=== PATIENT | male | born 1970 | race Caucasian/White ===

== ENCOUNTER 2017-07-30 08:01 | Emergency (ER) | payer BC, OTHER ==
[2017-07-30 08:19] VITALS: BP 119/84
--- NOTE | 2017-07-30 08:58 | ED Physician Documentation ---
PD HPI HEENT - Stated complaint Stated Complaint: THROAT PX/COUGH - Chief complaint Chief Complaint: Resp - History obtained from History obtained from: Patient - History of Present Illness Timing - duration: Weeks (3) Timing - details: Still present Location: Sinuses, Throat Associated symptoms: Congestion, Cough - Treatment prior to arrival Treatment prior to arrival: Motrin and Sudafed without relief. - Additional information Additional information: The patient is a 47-year-old male who presents with cough and sinus drainage of 3 weeks duration. He has been using [id number] cough medicine without relief. He presents now because of the sore throat that started yesterday and is worse today. He denies fever or shortness of breath. He denies abdominal pain, nausea or vomiting. He does report associated headache. Social history is significant for an for cigarette smoking. Review of Systems Constitutional: denies: Fever Eyes: denies: Discharge Ears: denies: Ear pain Nose: reports: Congestion, Sinus pressure / pain Throat: reports: Sore throat Cardiac: denies: Chest pain / pressure Respiratory: reports: Cough. denies: Dyspnea GI: denies: Abdominal Pain, Nausea, Vomiting : denies: Dysuria Skin: denies: Rash Musculoskeletal: denies: Back pain Neurologic: reports: Headache PD PAST MEDICAL HISTORY - Past Medical History Cardiovascular: None Respiratory: None Neuro: None Endocrine/Autoimmune: None Psych: Anxiety, Post traumatic stress disorder - Past Surgical History Past Surgical History: No - Present Medications Home Medications: Ambulatory Orders Medication Instructions Recorded Confirmed Amox/Clav 875/125 [Augmentin] 1 each PO Q12H #14 tablet 07/30/17 Oxymetazoline HCl [Afrin] 15 ml NS BID #1 spray 07/30/17 - Allergies Allergies/Adverse Reactions: Allergies Allergy/AdvReac Type Severity Reaction Status Date / Time No Known Drug Allergies Allergy Verified 05/03/16 07:47 - Social History Does the pt smoke?: Yes Smoking Status: Current every day smoker Does the pt drink ETOH?: Yes Does the pt have substance abuse?: No - Immunizations Immunizations are current?: Yes - POLST Patient has POLST: Yes PD ED PE NORMAL - Vitals Vital signs reviewed: Yes (normal) - General General: Alert and oriented X 3, Well developed/nourished - HEENT HEENT: Atraumatic, EOMI, Ears normal, Pharynx benign, Other (Tenderness to percussion over the maxillary sinuses bilaterally.) - Neck Neck: Supple, no meningeal sign, No adenopathy, No JVD - Cardiac Cardiac: RRR, No murmur - Respiratory Respiratory: No respiratory distress, Clear bilaterally - Abdomen Abdomen: Soft, Non tender - Back Back: No CVA TTP - Derm Derm: No rash - Extremities Extremities: No edema, No calf tenderness / cord - Neuro Neuro: Alert and oriented X 3, No motor deficit, Normal speech Results - Vitals Vitals: Oxygen O2 Source Room air PD MEDICAL DECISION MAKING - ED course Complexity details: considered differential, d/w patient ED course: The patient's presentation is most consistent with acute sinusitis. Given the duration of his symptoms antibiotic treatment is clinically indicated. Examination of his oropharynx does not suggest acute pharyngitis or peritonsillar abscess. It is likely his sore throat and cough are caused by drainage in his posterior oropharynx. He is being discharged with prescription for Augmentin and for Afrin nasal spray. I discussed with him the expected course of illness, antibiotic treatment and outpatient follow-up, as well as potentially worrisome signs or symptoms that should prompt reevaluation in the emergency department. Departure - Departure Disposition: 01 Home, Self Care Clinical Impression: Sinusitis Qualifiers: Sinusitis location: maxillary Chronicity: subacute Qualified Code(s): J01.00 - Acute maxillary sinusitis, unspecified Condition: Stable Instructions: ED Sinusitis Abx Tx Follow-Up: Josephine Robertson ARNP [Primary Care Provider] - Prescriptions: Amox/Clav 875/125 [Augmentin] 1 each PO Q12H #14 tablet Oxymetazoline HCl [Afrin] 15 ml NS BID #1 spray Comments: Stop smoking cigarettes. Take Augmentin twice daily as prescribed. Eat probiotic yogurt while on antibiotic therapy. You can use Afrin nasal spray as prescribed if needed for nasal congestion. You can use Tylenol or ibuprofen for fever or discomfort. Follow up with your primary physician within 2 weeks. Call to schedule an appointment. Return to the emergency department if you develop increasing difficulty breathing, or otherwise worsening symptoms. Discharge Date/Time: 07/30/17 09:07
== END 2017-07-30 09:07 | disposition home or self-care (01) ==
LOC: ED 08:01
DX: J01.00 Acute maxillary sinusitis, unspecified (principal); F17.200 Nicotine dependence, unspecified, uncomplicated
CPT/HCPCS: 99283

== ENCOUNTER 2017-10-20 09:32 | Outpatient (CLI) | payer BC, OTHER ==
--- NOTE | 2017-10-20 12:07 | XRAY Report ---
DATE OF SERVICE: 10/20/2017 TWO VIEW CHEST: 10/20/2017 CLINICAL INDICATION: History of positive PPD. COMPARISON: 05/03/2016. FINDINGS: Frontal and lateral views of the chest demonstrate a normal cardiac silhouette. The lungs are clear. No effusion or pneumothorax is present. IMPRESSION: NORMAL CHEST, UNCHANGED. NO EVIDENCE OF ACTIVE TUBERCULOSIS. TD: 10/20/2017 13:05
== END 2017-10-20 09:33 | disposition home or self-care (01) ==
LOC: DI 09:32
PROVIDERS: ATTEND Nurse Practitioner Family
DX: Z11.1 Encounter for screening for respiratory tuberculosis (principal)
CPT/HCPCS: 71046

== ENCOUNTER 2019-01-22 11:13 | Emergency (ER) | payer BC, OTHER ==
[2019-01-22 11:39] VITALS: BP 134/84
--- NOTE | 2019-01-22 13:30 | ED Physician Documentation ---
PD HPI HEENT FB - Chief complaint Chief Complaint: Heent - History obtained from History obtained from: Patient - History of Present Illness Timing - onset: Other (For the last month or so he has had a mass that he thinks is about the size of a golf ball over the superior anterior right jaw that is painful especially with swallowing. The pain keeps him up at night and is quite annoying. Pain is not severe however. He does feel like it is slowly getting worse. He is used chewing tobacco for a long time. He denies weight loss or sweats.) Review of Systems Ten Systems: 10 systems reviewed and negative Constitutional: reports: Fatigue. denies: Fever, Chills, Myalgias Ears: denies: Drainage/discharge Nose: denies: Rhinorrhea / runny nose, Congestion PD PAST MEDICAL HISTORY - Past Medical History Cardiovascular: None Respiratory: None Endocrine/Autoimmune: None Psych: Anxiety, Post traumatic stress disorder - Past Surgical History Past Surgical History: No - Present Medications Home Medications: Ambulatory Orders Medication Instructions Recorded Confirmed Amox/Clav 875/125 [Augmentin] 1 each PO Q12H #14 tablet 07/30/17 Oxymetazoline HCl [Afrin] 15 ml NS BID #1 spray 07/30/17 Amox/Clav 875/125 [Augmentin] 1 each PO Q12H #20 tablet 01/22/19 - Allergies Allergies/Adverse Reactions: Allergies Allergy/AdvReac Type Severity Reaction Status Date / Time No Known Drug Allergies Allergy Verified 01/22/19 11:39 - Social History Does the pt smoke?: Yes Smoking Status: Current every day smoker Does the pt drink ETOH?: Yes Does the pt have substance abuse?: No - Family History Family history: reports: Non contributory - Immunizations Immunizations are current?: Yes - POLST Patient has POLST: Yes PD ED PE NORMAL - Vitals Vital signs reviewed: Yes - General General: Alert and oriented X 3, No acute distress - HEENT HEENT: Other (There is slight right facial swelling and the suggestion of a mass in the tissue near the last superior molar without trismus, asymmetry of the oropharynx or lingual deviation. Palpated portions of the neck are normal.) - Neck Neck: Supple, no meningeal sign, No bony TTP - Neuro Neuro: Alert and oriented X 3, Normal speech - Psych Psych: Normal mood, Normal affect Results - Vitals Vitals: Vital Signs - 24 hr 01/22/19 11:37 Temperature 36.7 C Heart Rate 95 Respiratory 16 Rate Blood Pressure 134/84 H O2 Saturation 100 Oxygen O2 Source Room air - Labs Labs: Laboratory Tests 01/22/19 01/22/19 13:35 13:35 WBC 7.3 RBC 4.59 L Hgb 15.9 Hct 45.0 MCV 98.1 H MCH 34.7 H MCHC 35.3 RDW 12.3 Plt Count 262 MPV 8.2 Neut # (Auto) 4.2 Lymph # (Auto) 2.0 [place] # (Auto) 0.6 Eos # (Auto) 0.4 Baso # (Auto) 0.0 Absolute Nucleated RBC 0.01 Nucleated RBC % 0.1 Sodium 136 Potassium 3.7 Chloride 98 L Carbon Dioxide 30 Anion Gap 8.0 BUN 17 Creatinine 0.8 Estimated GFR (MDRD) 102 Glucose 102 H Calcium 9.1 Total Bilirubin 0.8 AST 35 ALT 46 Alkaline Phosphatase 60 Total Protein 7.6 Albumin 4.1 Globulin 3.5 Albumin/Globulin Ratio 1.2 Lipase 55 H - Rads (name of study) CT Face with contrast Radiology: EMP read contemporaneously (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 This was present on a CT from 6 years ago.) PD MEDICAL DECISION MAKING - ED course ED course: This is a 48-year-old gentleman with long-standing history of chewing tobacco use who presents with pain from a facial mass that is been bothering him for about a month. Cancer was at the top of the differential but parotitis and sialolith were also a possibility. CT as shown. I discussed the results with him. He does not recall when he was here for in January 2013 and those records are no longer available the has not significantly changed over 6 years is reassuring against malignancy. He was given a copy of his CAT scan and his sees an ENT who he will follow up with. Departure - Departure Disposition: 01 Home, Self Care Clinical Impression: Parotid gland enlargement Condition: Good Record reviewed to determine appropriate education?: Yes Prescriptions: Amox/Clav 875/125 [Augmentin] 1 each PO Q12H #20 tablet Comments: As discussed, you have an abnormal parotid gland on CT. It is reassuring though that the findings have not significantly changed in the last 6 years suggesting against a malignant process. I think is reasonable to trial some antibiotics, follow-up with your 's ear nose and throat surgeon within the next week or 2 with copy of the CAT scan on CD with you. Return for new or worsening symptoms.
[2019-01-22] MEDS ORDERED: IOVERSOL 320 100 ML VIAL IVP ONE ×2 (13:38→14:46)
[2019-01-22 13:47] LABS: BASOPHILS % (AUTO) 0.6 %; EOSINOPHILS # (AUTO) 0.4 10^3/uL (0.0-0.7); EOSINOPHILS % (AUTO) 5.8 %; HGB - HEMOGLOBIN 15.9 g/dL (14.0-18.0); LYMPHOCYTES % (AUTO) 27.2 %; MEAN CORPUSCULAR HEMOGLOBIN 34.7 pg (27.0-31.0); MEAN CORPUSCULAR HGB CONC 35.3 g/dL (32.0-36.0); MEAN CORPUSCULAR VOLUME 98.1 fL (80.0-94.0); MEAN PLATELET VOLUME 8.2 fL (7.4-11.4); MONOCYTES # (AUTO) 0.6 10^3/uL (0.0-1.0); MONOCYTES % (AUTO) 8.7 %; NEUTROPHILS # (AUTO) 4.2 10^3/uL (1.5-6.6); NEUTROPHILS % (AUTO) 57.7 %; PLT - PLATELET COUNT 262 10^3/uL (130-450); RED BLOOD COUNT 4.59 10^6/uL (4.70-6.10); RED CELL DISTRIBUTION WIDTH 12.3 % (12.0-15.0); WHITE BLOOD COUNT 7.3 x10^3/uL (4.8-10.8)
[2019-01-22 14:12] LABS: ALBUMIN 4.1 g/dL (3.2-5.5); ALBUMIN/GLOBULIN RATIO 1.2 (1.0-2.2); BILIRUBIN,TOTAL 0.8 mg/dL (0.2-1.0); CALCIUM 9.1 mg/dL (8.5-10.3); CREATININE 0.8 mg/dL (0.6-1.2); TOTAL PROTEIN 7.6 g/dL (6.7-8.2)
--- NOTE | 2019-01-22 14:59 | CT Report ---
Reason: R facial mass, IV contrast, go from zygoma->hyoid Procedure Date: 01/22/2019 Accession Number: [id number] / [id number] Procedure: CT - MAXILLOFACIAL W CPT Code: FULL RESULT: EXAM: CT MAXILLOFACIAL WITH CONTRAST EXAM DATE: 01/22/2019 02:34 PM. CLINICAL HISTORY: 48-year-old with right facial mass. Evaluate for facial pathology. COMPARISONS: CT neck 01/17/2013. TECHNIQUE: Thin-section axial images were acquired of the face after administration of intravenous contrast. Post-processing: Coronal and sagittal reformats. Other: None. IV contrast: [id number]. In accordance with CT protocol optimization, one or more of the following dose reduction techniques were utilized for this exam: automated exposure control, adjustment of mA and/or KV based on patient size, or use of iterative reconstructive technique. FINDINGS: Soft Tissue: No abnormal inflammation or fluid collection. No soft tissue mass. The infratemporal fossa appears normal. There are punctate calcifications seen within the tonsillar crypts. The mucosa of the nasopharynx and oropharynx appear symmetric with no discrete mass or masslike enhancement seen. Parapharyngeal soft tissues of the pharynx appear clear. Orbits: Symmetric and unremarkable. Bones: No fracture or bone lesion. Temporomandibular Joints: Mild bilateral TMJ arthropathy, greater on the right. Sinuses: Small left maxillary mucosal retention cyst versus polyps with mild mucosal thickening left maxillary sinus. Mastoid air cells and middle ear cavities appear clear. Glands: Again demonstrated is a right parotid tail with accessory parotid gland extending over the right masseter muscle (series 4, image 84) similar to CT neck 01/17/2013. Otherwise the glands appear normal. Other: None. IMPRESSION: 1. Again demonstrated is a right parotid tail with accessory parotid gland extending over the right masseter muscle similar to CT neck 01/17/2013. As no CT marker was placed it is unclear if this represents the right facial mass. 2. Otherwise no definite mass, inflammatory process, fluid collection, or abnormal postcontrast enhancement seen within the face. RADIA
== END 2019-01-22 16:13 | disposition home or self-care (01) ==
LOC: ED 11:13
DX: R59.0 Localized enlarged lymph nodes (principal); F17.200 Nicotine dependence, unspecified, uncomplicated
CPT/HCPCS: 36415; 70487; 80053; 83690; 85025; 99283; Q9967

== ENCOUNTER 2020-07-08 11:24 | Outpatient (CLI) | payer BC, OTHER | END 2020-07-08 11:25 | disposition home or self-care (01) | LOC: COV 11:24 | PROVIDERS: ATTEND Family Medicine | DX: R05 Cough (principal); R09.81 Nasal congestion; R11.2 Nausea with vomiting, unspecified; Z20.828 Contact with and (suspected) exposure to other viral communicable diseases ==

== ENCOUNTER 2021-06-16 03:46 | Emergency (ER) | payer BC, OTHER ==
[2021-06-16] MEDS ORDERED: MIDAZOLAM 10 MG/5 ML UDC PO STA (05:16)
[2021-06-16] MEDS ORDERED: oxyCODONE 5 MG TABLET PO STA (05:17)
--- NOTE | 2021-06-16 05:46 | ED Physician Documentation ---
PD HPI OPHTHO - Stated complaint Stated Complaint: L EYE PX - Chief complaint Chief Complaint: Heent - History obtained from History obtained from: Patient - Additional information Additional information: 51-year-old man presents with left eye pain after splashing hot oil on it while cooking dinner for his this evening. He irrigated it for an hour with water and then went to bed and slept but then woke up with severe pain. Also endorses some mild pain in the right eye. Review of Systems Eyes: reports: Irritation PD PAST MEDICAL HISTORY - Past Medical History Past Medical History: No Cardiovascular: None Respiratory: Other Neuro: None Endocrine/Autoimmune: None GI: None : None HEENT: None Psych: Anxiety, Post traumatic stress disorder Musculoskeletal: None Derm: None - Past Surgical History Past Surgical History: No - Present Medications Home Medications: Ambulatory Orders Medication Instructions Recorded Confirmed Amox/Clav 875/125 [Augmentin] 1 each PO Q12H #14 tablet 07/30/17 Oxymetazoline HCl [Afrin] 15 ml NS BID #1 spray 07/30/17 Amox/Clav 875/125 [Augmentin] 1 each PO Q12H #20 tablet 01/22/19 Chlorhexidine Gluconate [Peridex] 15 ml MM BID #118 ml 05/06/19 Hydrocodone/Acetaminophen 1 - 2 each PO Q6HR PRN #20 tablet 05/06/19 [Hydrocodone-Acetamin 5-325 mg] cephALEXin [Keflex] 500 mg PO Q6H #28 capsule 05/06/19 Mineral Oil/Petrolatum,White 3.5 gm OP QPM #1 bottle 06/16/21 [Lubricant Pm Eye Ointment] - Allergies Allergies/Adverse Reactions: Allergies Allergy/AdvReac Type Severity Reaction Status Date / Time No Known Drug Allergies Allergy Verified 06/16/21 03:54 - Social History Does the pt smoke?: Yes Smoking Status: Current every day smoker Does the pt drink ETOH?: Yes Does the pt have substance abuse?: No - Immunizations Immunizations are current?: Yes - POLST Patient has POLST: Yes PD ED PE NORMAL - Vitals Vital signs reviewed: Yes - General General: Alert and oriented X 3, No acute distress, Well developed/nourished - HEENT HEENT: Atraumatic, PERRL, EOMI, Other (patient initially unable to open eye, resolving after instillation of lidocaine drops. fluorescein stain with 1mm area of increased uptake to L eye at center of cornea. R eye with mild increased uptake to medial cornea. no foreign body on eversion of lids) - Derm Derm: Normal color, Warm and dry - Neuro Neuro: Alert and oriented X 3 - Psych Psych: Other (anxious mood and affect) Results - Vitals Vitals: Vital Signs - 24 hr 06/16/21 03:49 Temperature 36.2 C L Heart Rate 81 Respiratory 18 Rate Blood Pressure 134/79 H O2 Saturation 100 Oxygen O2 Source Room air PD MEDICAL DECISION MAKING - ED course ED course: 51-year-old man presented with corneal injury after splashing hot oil on his eye. No visible injury on plain light inspection however fluorescein exam shows increased uptake BL eyes. antibiotic drops provided and ointment prescribed. patient will f/u with ophthalmology . Departure - Departure Disposition: 01 Home, Self Care Clinical Impression: Corneal burn Condition: Good Instructions: Corneal Injury Prescriptions: Mineral Oil/Petrolatum,White [Lubricant Pm Eye Ointment] 3.5 gm OP QPM #1 bottle Comments: You were seen in the emergency department for an oil spot on the left eye. You also had a small area of irritation on the right and will need to use antibiotic eyedrops every 4 hours until you finish the bottle. Please also instill lubricating drops at nighttime and whenever you are resting with your eyes closed for a period of time. Return to the emergency department if you have new or worsening symptoms or other concerns. follow up with ophthalmology. [facility] (3) Cardiology Teacher [address], [place] Closed Opens 8 AM
[2021-06-16 05:57] VITALS: BP 132/72
[2021-06-16] MEDS ORDERED: OFLOXACIN 0.3% OPHTH DROPS EACHEYE SCH (06:00)
== END 2021-06-16 05:57 | disposition home or self-care (01) ==
LOC: ED 03:46
DX: T26.12XA Burn of cornea and conjunctival sac, left eye, initial encounter (principal); H57.11 Ocular pain, right eye; X10.2XXA Contact with fats and cooking oils, initial encounter; Y93.G3 Activity, cooking and baking; F17.200 Nicotine dependence, unspecified, uncomplicated
CPT/HCPCS: 99282; 99283; A9270

== ENCOUNTER 2021-10-21 08:00 | Outpatient (CLI) | payer BC, OTHER ==
--- NOTE | 2021-10-21 14:48 | XRAY Report ---
PROCEDURE: Abdomen 1 View X-Ray INDICATIONS: PATIENT FALL TECHNIQUE: 1 view of the abdomen were acquired. COMPARISON: None FINDINGS: Surgical changes and devices: None. Bowel: No pneumoperitoneum. The bowel gas pattern is normal. Soft tissues: No masses; visualized solid organ contours appear normal in size. No suspicious abdom inal calcifications. Bones: No suspicious bony abnormalities. IMPRESSION: No acute process. Reviewed by: Maribeth Sultana MD on 10/21/2021 2:47 PM PST Approved by: Maribeth Sultana MD on 10/21/2021 2:47 PM [facility] Station ID: [id number]
--- NOTE | 2021-10-21 18:44 | XRAY Report ---
PROCEDURE: Ribs w/PA Chest RT INDICATIONS: PATIENT FELL TECHNIQUE: 3 views of the right ribs were acquired, along with a single view chest. COMPARISON: None FINDINGS: Surgical changes and devices: None. Bones and chest wall: No fractures or dislocations. No suspicious bony lesions. Overlying soft tis sues appear unremarkable. Lungs and pleura: No pleural effusions or pneumothorax. Lungs appear clear. Mediastinum: Mediastinal contours appear normal. Heart size is normal. IMPRESSION: No evidence of acute right rib fracture. No evidence acute pulmonary process. Reviewed by: Kanu Bowman MD on 10/21/2021 6:43 PM PST Approved by: Kanu Bowman MD on 10/21/2021 6:43 PM PST Station ID: [id number]
== END 2021-10-21 23:59 ==
LOC: DI.N 08:00
PROVIDERS: ATTEND Nurse Practitioner
DX: R07.81 Pleurodynia (principal); R10.9 Unspecified abdominal pain

== ENCOUNTER 2022-01-24 13:49 | Emergency (ER) | payer BC, OTHER ==
[2022-01-24 13:54] VITALS: BP 145/90
--- NOTE | 2022-01-24 13:59 | ED Physician Documentation ---
History of Present Illness - Stated complaint Stated Complaint: MED REFILL - Chief complaint Chief Complaint: General - History obtained from History obtained from: Patient - Additonal information Additional information: 51-year-old gentleman who presents requesting refill of lorazepam for PTSD. His doctor was out of the office and was unable to get his refill as usual and now they cannot refill it over the weekend. He has no acute complaints. Review of Systems Constitutional: denies: Fever, Chills Musculoskeletal: reports: Reviewed and negative Neurologic: reports: Reviewed and negative Psychiatric: denies: Depressed, Suicidal, Hallucinations, Delusions PD PAST MEDICAL HISTORY - Past Medical History Cardiovascular: None Respiratory: Other Neuro: None Endocrine/Autoimmune: None GI: None : None HEENT: None Psych: Anxiety, Post traumatic stress disorder Musculoskeletal: None Derm: None - Past Surgical History Past Surgical History: No - Present Medications Home Medications: Ambulatory Orders Medication Instructions Recorded Confirmed Amox/Clav 875/125 [Augmentin] 1 each PO Q12H #14 tablet 07/30/17 Oxymetazoline HCl [Afrin] 15 ml NS BID #1 spray 07/30/17 Amox/Clav 875/125 [Augmentin] 1 each PO Q12H #20 tablet 01/22/19 Chlorhexidine Gluconate [Peridex] 15 ml MM BID #118 ml 05/06/19 Hydrocodone/Acetaminophen 1 - 2 each PO Q6HR PRN #20 tablet 05/06/19 [Hydrocodone-Acetamin 5-325 mg] cephALEXin [Keflex] 500 mg PO Q6H #28 capsule 05/06/19 Mineral Oil/Petrolatum,White 3.5 gm OP QPM #1 bottle 06/16/21 [Lubricant Pm Eye Ointment] LORazepam [Ativan] 1 mg PO BID #10 tablet 01/24/22 - Allergies Allergies/Adverse Reactions: Allergies Allergy/AdvReac Type Severity Reaction Status Date / Time No Known Drug Allergies Allergy Verified 01/24/22 13:52 - Social History Does the pt smoke?: Yes Smoking Status: Current every day smoker Does the pt drink ETOH?: Yes Does the pt have substance abuse?: No - Immunizations Immunizations are current?: Yes - POLST Patient has POLST: Yes PD ED PE NORMAL - Vitals Vital signs reviewed: Yes - General General: Alert and oriented X 3, No acute distress - Derm Derm: Normal color, Warm and dry - Neuro Neuro: Alert and oriented X 3, Normal speech - Psych Psych: Normal mood, Normal affect Results - Vitals Vitals: Vital Signs - 24 hr 01/24/22 13:52 Temperature 36.5 C Heart Rate 90 Respiratory 15 Rate Blood Pressure 145/90 H O2 Saturation 99 Oxygen O2 Source Room air PD MEDICAL DECISION MAKING - ED course ED course: 51-year-old presents for medication refill, will prescribe a limited amount unti l he can see his doctor. Of note the original prescription was sent to [facility] but then had to be canceled and sent to [facility] as [facility] is open but does not have a pharmacist today. Departure - Departure Disposition: 01 Home, Self Care Clinical Impression: PTSD (post-traumatic stress disorder) Condition: Good Record reviewed to determine appropriate education?: Yes Instructions: Lorazepam Prescriptions: LORazepam [Ativan] 1 mg PO BID #10 tablet Comments: I sent your prescription electronically to [facility] in [place]. As discussed, follow-up with your doctor for further refills. Do not drink or drive while taking lorazepam/Ativan. Discharge Date/Time: 01/24/22 14:07
== END 2022-01-24 14:07 | disposition home or self-care (01) ==
LOC: ED 13:49
DX: Z76.0 Encounter for issue of repeat prescription (principal); F43.10 Post-traumatic stress disorder, unspecified; F17.200 Nicotine dependence, unspecified, uncomplicated
CPT/HCPCS: 99282

== ENCOUNTER 2022-03-18 01:48 | Outpatient (CLI) | payer BC, OTHER | END 2022-03-18 01:49 | disposition critical access hospital (66) | LOC: EMS 01:48 | DX: R07.0 Pain in throat (principal); Y04.8XXA Assault by other bodily force, initial encounter | CPT/HCPCS: A0425; A0429 ==

== ENCOUNTER 2023-03-25 11:41 | Outpatient (CLI) | payer BC, OTHER ==
[2023-03-25 14:19] LABS: BASOPHILS # (AUTO) 0.1 10^3/uL (0.0-0.1); BASOPHILS % (AUTO) 0.8 %; EOSINOPHILS # (AUTO) 0.4 10^3/uL (0.0-0.7); EOSINOPHILS % (AUTO) 4.7 %; HCT - HEMATOCRIT 45.5 % (42.0-52.0); HGB - HEMOGLOBIN 15.8 g/dL (14.0-18.0); LYMPHOCYTES # (AUTO) 2.2 10^3/uL (1.5-3.5); LYMPHOCYTES % (AUTO) 29.4 %; MEAN CORPUSCULAR HGB CONC 34.7 g/dL (32.0-36.0); MEAN CORPUSCULAR VOLUME 97.8 fL (80.0-94.0); MEAN PLATELET VOLUME 10.5 fL (7.4-11.4); MONOCYTES # (AUTO) 0.7 10^3/uL (0.0-1.0); MONOCYTES % (AUTO) 9.2 %; NEUTROPHILS # (AUTO) 4.1 10^3/uL (1.5-6.6); NEUTROPHILS % (AUTO) 55.5 %; PLT - PLATELET COUNT 299 10^3/uL (130-450); RED BLOOD COUNT 4.65 10^6/uL (4.70-6.10); RED CELL DISTRIBUTION WIDTH 11.6 % (12.0-15.0); WHITE BLOOD COUNT 7.4 x10^3/uL (4.8-10.8)
[2023-03-25 15:00] LABS: CALCIUM 9.6 mg/dL (8.5-10.3); CREATININE 1.1 mg/dL (0.6-1.2); POTASSIUM 3.5 mmol/L (3.5-5.0); URIC ACID 7.4 mg/dL (2.6-7.2)
== END 2023-03-25 11:42 | disposition home or self-care (01) ==
LOC: LAB.S 11:41
PROVIDERS: ATTEND Emergency Medicine
DX: M10.9 Gout, unspecified (principal)
CPT/HCPCS: 36415; 80048; 84550; 85025

== ENCOUNTER 2023-05-27 13:44 | Outpatient (CLI) | payer BC, OTHER | END 2023-05-27 13:45 | disposition home or self-care (01) | LOC: LAB.S 13:44 | PROVIDERS: ATTEND Nurse Practitioner | DX: M1A.9XX0 Chronic gout, unspecified, without tophus (tophi) (principal) | CPT/HCPCS: 36415; 84550 ==

== ENCOUNTER 2023-10-29 08:00 | Outpatient (CLI) | payer BC, OTHER ==
--- NOTE | 2023-10-29 14:22 | XRAY Report ---
PROCEDURE: Chest 2V INDICATIONS: ACUTE LOWER RESPIRATORY INFECTION TECHNIQUE: 2 views of the chest were acquired. COMPARISON: Chest radiographs 10/20/2017 FINDINGS: Surgical changes and devices: None. Lungs and pleura: No pleural effusions or pneumothorax. Lungs are clear. Mediastinum: Mediastinal contours appear normal. Heart size is normal. Bones and chest wall: No suspicious bony lesions. Overlying soft tissues appear unremarkable. IMPRESSION: No acute cardiopulmonary process. Reviewed by: Edward Otto MD on 10/29/2023 2:21 PM PST Approved by: Edward Otto MD on 10/29/2023 2:21 PM PST Station ID: [id number]
== END 2023-10-29 23:59 | disposition home or self-care (01) ==
LOC: DI.S 08:00
PROVIDERS: ATTEND Emergency Medicine
DX: J22 Unspecified acute lower respiratory infection (principal)

== ENCOUNTER 2023-11-05 09:13 | Outpatient (CLI) | payer BC, OTHER | END 2023-11-05 09:14 | disposition critical access hospital (66) | LOC: EMS 09:13 | DX: R10.12 Left upper quadrant pain (principal); R07.81 Pleurodynia; R07.1 Chest pain on breathing; W17.89XA Other fall from one level to another, initial encounter; Y92.009 Unspecified place in unspecified non-institutional (private) residence as the place of occurrence of the external cause | CPT/HCPCS: A0425; A0427 ==

== ENCOUNTER 2023-11-05 09:46 | Emergency (ER) | payer BC, OTHER ==
[2023-11-05 10:25] LABS: BASOPHILS # (AUTO) 0.1 10^3/uL (0.0-0.1); BASOPHILS % (AUTO) 0.6 %; EOSINOPHILS # (AUTO) 0.1 10^3/uL (0.0-0.7); EOSINOPHILS % (AUTO) 1.5 %; HGB - HEMOGLOBIN 15.2 g/dL (14.0-18.0); LYMPHOCYTES # (AUTO) 1.3 10^3/uL (1.5-3.5); LYMPHOCYTES % (AUTO) 13.6 %; MEAN CORPUSCULAR HEMOGLOBIN 34.7 pg (27.0-31.0); MEAN CORPUSCULAR HGB CONC 34.5 g/dL (32.0-36.0); MEAN CORPUSCULAR VOLUME 100.5 fL (80.0-94.0); MEAN PLATELET VOLUME 10.2 fL (7.4-11.4); MONOCYTES # (AUTO) 0.7 10^3/uL (0.0-1.0); MONOCYTES % (AUTO) 7.8 %; NEUTROPHILS # (AUTO) 7.2 10^3/uL (1.5-6.6); PLT - PLATELET COUNT 242 10^3/uL (130-450); RED BLOOD COUNT 4.38 10^6/uL (4.70-6.10); RED CELL DISTRIBUTION WIDTH 11.9 % (12.0-15.0); WHITE BLOOD COUNT 9.5 x10^3/uL (4.8-10.8)
[2023-11-05 10:41] LABS: ALBUMIN/GLOBULIN RATIO 1.2 (1.0-2.2); BILIRUBIN,TOTAL 0.7 mg/dL (0.2-1.0); CALCIUM 8.9 mg/dL (8.5-10.3); CREATININE 0.9 mg/dL (0.6-1.3); POTASSIUM 4.7 mmol/L (3.5-4.5); TOTAL PROTEIN 7.3 g/dL (6.4-8.9)
[2023-11-05] MEDS ORDERED: SODIUM CHLORIDE 0.9% 1,000 ML IV STA (10:41)
[2023-11-05] MEDS ORDERED: ONDANSETRON 4 MG/2 ML VIAL IVP STA (10:41)
[2023-11-05] MEDS ORDERED: MORPHINE 2 MG/ML CARPUJECT IVP STA (10:41)
[2023-11-05] MEDS ORDERED: iohexoL-300 100 ML VIAL ONE (10:44)
--- NOTE | 2023-11-05 11:42 | CT Report ---
PROCEDURE: Chest W INDICATIONS: L sided rib and flank pain after trauma CONTRAST: 100ml omni 300 TECHNIQUE: After the administration of intravenous contrast, a CT scan of the chest was performed. Images were recorded and evaluated at appropriate window settings. Reformats: axial MIP of the chest, coronal and sagittal. For radiation dose reduction, the following was used: automated exposure control, adjustme nt of mA and/or kV according to patient size. COMPARISON: 10/29/2023 radiograph FINDINGS: Image quality: Diagnostic Lungs and pleura:Bibasilar atelectasis/scarring. Mild bronchial wall thickening. No dense airspace di sease. No pleural effusion/hemothorax. No pneumothorax. No solid mass/nodule requiring followup per current guidelines if patient is not high risk and has no primary malignancy. Fissural nodules and micronodules can be followed on an optional basis for high- risk patients (for example on the right). Mediastinum, heart, and esophagus: Normal heart size. No pathologic lymph nodes by size criteria. Chest wall and thyroid: Unremarkable Upper abdomen: Separately dictated Bones: Nondisplaced fracture of the left 11th rib. Possible additional nondisplaced fracture of the l eft 12th rib. IMPRESSION: Nondisplaced left lower rib fractures. No pneumothorax. Other findings as above. Reviewed by: Leopoldo Cardona MD on 11/05/2023 11:41 AM PST Approved by: Leopoldo Cardona MD on 11/05/2023 11:41 AM PST Station ID: [id number]
--- NOTE | 2023-11-05 11:47 | CT Report ---
PROCEDURE: Abdomen/Pelvis W INDICATIONS: L sided rib and flank pain after trauma CONTRAST: 100ml omni 300 TECHNIQUE: After the administration of intravenous contrast, a CT scan of the abdomen and pelvis was performed. Images were recorded and evaluated at appropriate window settings. Reformats: coronal and sagittal. F or radiation dose reduction, the following was used: automated exposure control, adjustment of mA and /or kV according to patient size. COMPARISON: 03/31/2014 FINDINGS: Image quality: Diagnostic Lower chest: Separately dictated Liver: Possible hemangioma of the liver dome versus perfusional anomaly, also seen in 2014 Gallbladder and biliary system: Unremarkable Pancreas: No ductal dilation Spleen: No capsular hematoma or discrete laceration Adrenals: No adrenal nodules Kidneys: No solid mass or hydronephrosis Vessels and lymph nodes: The main portal vein is patent. There is no abdominal aortic aneurysm or pat hologic lymph nodes by size criteria. Bowel and peritoneum: No evidence of small bowel obstruction. No drainable abscess or pathologic asci joleen. Body wall: Tiny fat-containing umbilical hernia. Pelvis: Bladder is unremarkable. The prostate is not well assessed on this study. There is heterogene ous enhancement, consider correlation with PSA. Small fat-containing inguinal hernias. Bones: No acute or suspicious osseous finding. Degenerative changes are present. Rib fractures are se parately dictated on chest CT. IMPRESSION: Left lower rib nondisplaced fractures are separately dictated. No acute intra-abdominal traumatic abn ormality identified. Other findings as above. Reviewed by: Leopoldo Cardona MD on 11/05/2023 11:46 AM PST Approved by: Leopoldo Cardona MD on 11/05/2023 11:46 AM PST Station ID: [id number]
[2023-11-05] MEDS ORDERED: iohexoL-300 100 ML VIAL IVP ONE (11:56)
--- NOTE | 2023-11-05 12:07 | ED Physician Documentation ---
PD HPI Fall - Stated complaint Stated Complaint: FALL - Chief complaint Chief Complaint: Trauma Ch/Bk - History obtained from History obtained from: Patient - Additional information Additional information: Patient is a 53-year-old male presenting for evaluation of left-sided flank pain since yesterday. Patient states he tripped and fell out of his trailer and landed on his stump hitting his left lower rib and flank. Patient denies hitting his head. He does not take blood thinners. He initially went to the walk-in clinic and was directed here by EMS. Patient reports pain with movements and ta ben a deep breath. Review of Systems Constitutional: denies: Fever Cardiac: denies: Chest pain / pressure Respiratory: denies: Dyspnea GI: denies: Abdominal Pain Musculoskeletal: reports: Back pain Neurologic: denies: Head injury PD PAST MEDICAL HISTORY - Past Medical History Past Medical History: Yes Cardiovascular: None Respiratory: Other Neuro: None Endocrine/Autoimmune: None GI: None : None HEENT: None Psych: Anxiety, Post traumatic stress disorder Musculoskeletal: None Derm: None - Past Surgical History Past Surgical History: No - Present Medications Home Medications: Ambulatory Orders Medication Instructions Recorded Confirmed Albuterol Sulfate [Proair 90 mcg IH QID 11/05/23 11/05/23 Digihaler] Azithromycin [Zithromax] 250 mg PO UD 11/05/23 11/05/23 Benzonatate [Tessalon] 100 mg PO TID 11/05/23 11/05/23 Doxycycline Hyclate [Vibramycin] 100 mg PO BID 11/05/23 11/05/23 Lidocaine Patch 5% [Lidoderm Patch] 1 patch TOP DAILY PRN #10 patch 11/05/23 Oxycodone HCl/Acetaminophen 1 each PO Q6H PRN #14 tablet 11/05/23 [Percocet 5-325 mg Tablet] Pantoprazole [Protonix] 40 mg PO DAILY 11/05/23 11/05/23 - Allergies Allergies/Adverse Reactions: Allergies Allergy/AdvReac Type Severity Reaction Status Date / Time No Known Drug Allergies Allergy Verified 11/05/23 10:04 - Social History Does the pt smoke?: Yes Smoking Status: Current every day smoker Does the pt drink ETOH?: Yes Does the pt have substance abuse?: No - Immunizations Immunizations are current?: Yes - POLST Patient has POLST: Yes PD ED PE NORMAL - General General: Alert and oriented X 3, No acute distress, Well developed/nourished - HEENT HEENT: Atraumatic, Moist mucous membranes, Pharynx benign - Neck Neck: Supple, no meningeal sign, No bony TTP, C-Spine cleared by NEXUS criteria - Cardiac Cardiac: RRR, Strong equal pulses - Respiratory Respiratory: No respiratory distress, Clear bilaterally - Abdomen Abdomen: Normal bowel sounds, Soft, Non tender, Non distended - Back Back: No spinal TTP, Other (Numbness towards the left lower flank, left lower ribs, no bruising, no ecchymosis, no flail segments) - Derm Derm: Warm and dry - Extremities Extremities: No deformity - Neuro Neuro: Alert and oriented X 3, No motor deficit, No sensory deficit, Normal speech Results - Vitals Vitals: Vital Signs - 24 hr 11/05/23 11/05/23 11/05/23 09:56 10:14 12:51 Temperature 36.8 C Heart Rate 78 73 79 Respiratory 17 16 20 Rate Blood Pressure 131/83 H 108/87 H 117/80 O2 Saturation 98 95 99 Oxygen O2 Source Room air - Labs Labs: Laboratory Tests 11/05/23 11/05/23 10:21 10:21 WBC 9.5 RBC 4.38 L Hgb 15.2 Hct 44.0 MCV 100.5 H MCH 34.7 H MCHC 34.5 RDW 11.9 L Plt Count 242 MPV 10.2 Neut # (Auto) 7.2 H Lymph # (Auto) 1.3 L Dubois # (Auto) 0.7 Eos # (Auto) 0.1 Baso # (Auto) 0.1 Absolute Nucleated RBC 0.00 Nucleated RBC % 0.0 Sodium 136 Potassium 4.7 H Chloride 101 Carbon Dioxide 25 Anion Gap 10.0 BUN 15 Creatinine 0.9 Estimated GFR (MDRD) 88 L Glucose 91 Calcium 8.9 Total Bilirubin 0.7 AST 37 ALT 30 Alkaline Phosphatase 79 Total Protein 7.3 Albumin 4.0 Globulin 3.3 Albumin/Globulin Ratio 1.2 Lipase 44 PD Medical Decision Making - ED course Complexity details: reviewed results, re-evaluated patient, d/w patient ED course: Patient is a 53-year-old male presenting for evaluation of left flank pain after fall Yesterday. Patient did not hit his head. No LOC. Labs including CBC and chemistries were obtained and reviewed. CT scan of the chest, abdomen pelvis were obtained and reviewed. He does have 2 rib fractures of the left 11 and 12. No intra-abdominal pathology. No pneumothorax. Pain was controlled with IV morphine. Patient advised on his rib fractures as well as treatment with pain medication and incentive spirometer. Patient advised on follow-up with primary care. He is counseled on concerning symptoms to return for. Departure - Departure Disposition: 01 Home, Self Care Clinical Impression: Left rib fracture Condition: Stable Instructions: ED Fx Rib Prescriptions: Lidocaine Patch 5% [Lidoderm Patch] 1 patch TOP DAILY PRN #10 patch PRN Reason: pain Oxycodone HCl/Acetaminophen [Percocet 5-325 mg Tablet] 1 each PO Q6H PRN #14 tablet PRN Reason: pain Comments: You have 2 rib fractures on the left side, 11th and 12th ribs. I am sending prescriptions for narcotic pain medication [facility] along with lidocaine patches. These will take several weeks to heal. I would recommend follow-up with your primary care doctor. We have also given you a device called an incentive spirometer that would recommend using several times a day to ensure that you are taking deep breaths and expanding your lungs. Return to the ER with any worsening symptoms such as fever, increased pain, difficulty breathing. I am prescribing a short course of narcotic pain medication for you. These are potentially dangerous and addictive medications that should be used carefully. These medications may constipate you. Take an baci-nes-omjrlyd stool softener (docusate) twice daily with plenty of water while taking these medications. If you go 24 hours without a bowel movement, take [id number] miralax, per package instructions. Do not drink or drive while taking these medications. If you received narcotic or sedating medications while in the emergency department, do not drive for 24 hours. Store this medication in a safe, secure place and out of reach of children. It is a violation of federal law to give or sell this medication to another person or to use in a manner other than prescribed. The ED will not refill narcotic prescriptions, including prescriptions lost or stolen. To dispose of unwanted medications: 1. [facility] [address] [place] has a medication drop box. They accept prescription medications (in pill form) Wednesday through Wednesday 9:00 a.m. to 5:00 p.m. 2. The [facility] [employer] accepts prescription medications (in pill form only) for disposal year round. Call for more information. 3. Contact the [facility] for the next [facility] sponsored prescription drug collection event. , [phone], or [phone]; Note that many narcotic pain relievers also contain Tylenol/acetaminophen. Please ensure that your total dose of acetaminophen from all sources does not exceed 3 g (3000 mg) per day. Forms: PCP List
[2023-11-05 12:54] VITALS: BP 117/80; O2SAT 99
== END 2023-11-05 13:01 | disposition home or self-care (01) ==
LOC: EDUNIT# → ED 09:46
DX: S22.42XA Multiple fractures of ribs, left side, initial encounter for closed fracture (principal); W17.89XA Other fall from one level to another, initial encounter; Y92.029 Unspecified place in mobile home as the place of occurrence of the external cause; F17.200 Nicotine dependence, unspecified, uncomplicated
CPT/HCPCS: 36415; 71260; 74177; 80053; 83690; 85025; 96374; 99284; Q9967

== ENCOUNTER 2024-03-28 13:30 | Outpatient (CLI) | payer BC, OTHER ==
--- NOTE | 2024-03-28 16:06 | Ultrasound Report ---
PROCEDURE: Duplex Ext Veins Left INDICATIONS: EDEMA, L CALF PAIN TECHNIQUE: Real-time imaging, as well as color and pulse Doppler interrogation, were performed of the lower extr emity deep veins from the inguinal ligament to the popliteal fossa. Attempted visualization of the ca lf veins was performed. COMPARISON: None. FINDINGS: The deep veins are normally compressible, and free of intraluminal thrombus. Color and pu lse Doppler demonstrate normal phasic intraluminal flow. There is normal augmentation response to di stal compression maneuver. IMPRESSION: No deep venous thrombosis of the visualized lower extremity. Reviewed by: Giselle Lechuga MD on 03/28/2024 4:05 PM PDT Approved by: Giselle Lechuga MD on 03/28/2024 4:05 PM PDT Station ID: [id number]
== END 2024-03-28 13:31 | disposition home or self-care (01) ==
LOC: DI 13:30
PROVIDERS: ATTEND Registered Nurse
DX: M79.622 Pain in left upper arm (principal); L65.9 Nonscarring hair loss, unspecified; R60.0 Localized edema